=== PATIENT | male | born 1955 | race African-American/Black ===

== ENCOUNTER 2023-05-09 12:07 | Inpatient (IN) | payer OTHER ==
[2023-05-09] VITALS (16 sets, daily range): BP systolic 78–118; BP diastolic 44–94; TEMP 98.2–98.7; O2SAT 95–100
[~2023-05-09] VITALS: Ht 188 cm; Wt 92.5 kg
[2023-05-09] MEDS: IV NS 0.9% 1,000 ML BAG IV ONE (12:45)
[2023-05-09 12:52] LABS: BASOPHILS % (AUTO) 0.4 % (0.0-2.0); HEMATOCRIT 38 % (39-51); HEMOGLOBIN 12.6 g/dL (13.5-17.5); LYMPHOCYTES # (AUTO) 0.5 K/uL (0.8-4.8); LYMPHOCYTES % (AUTO) 5.7 % (20.0-44.0); MEAN CORPUSCULAR HEMOGLOBIN 32 PG (26.0-33.0); MEAN CORPUSCULAR HGB CONC 33 g/dl (31.0-36.0); MEAN CORPUSCULAR VOLUME 98 fL (80-96); MONOCYTES # (AUTO) 0.7 K/uL (0.1-1.30); NEUTROPHILS # (AUTO) 8.2 K/uL (1.8-8.9); NEUTROPHILS % (AUTO) 86.9 % (43.0-81.0); PLATELET COUNT (AUTO) 232 K/uL (150-450); RED BLOOD CELL COUNT(AUTO) 3.92 MIL/uL (4.5-6.0); WHITE BLOOD COUNT (AUTO) 9.4 K/uL (4.3-11.0)
[2023-05-09 12:58] LABS: SERUM AMMONIA 20 umol/L (11-32)
[2023-05-09] MEDS ORDERED: BACL10TA PO (13:01)
[2023-05-09] MEDS ORDERED: GABA-532 PO (13:01)
[2023-05-09 13:06] LABS: INR 1.02 (0.91-1.10); PARTIAL THROMBOPLASTIN TIME 23.8 SEC (24.3-34.3); PROTHROMBIN TIME 10.8 SECS (9.2-11.1)
[2023-05-09 13:26] LABS: LACTIC ACID 2.5 mmol/L (0.4-2.0)
[2023-05-09 13:30] LABS: THYROID STIMULATING HORMONE 1.677 uIU/mL (0.358-3.74)
[2023-05-09 13:46] LABS: APPEARANCE,URINE Clear (CLEAR); BILIRUBIN,URINE SMALL (NEGATIVE); BLOOD, URINE Negative Ery/uL (NEGATIVE); COLOR,URINE YELLOW (YELLOW); KETONES,URINE Trace mg/dL (NEGATIVE); LEUKOCYTE ESTERASE ,URINE Negative (NEGATIVE); NITRITE, URINE Negative (NEGATIVE); PROTEIN,URINE Negative (NEGATIVE); UGLUCOSE Negative (NEGATIVE); UROBILINOGEN,URINE 0.2 EU/dL (0.2)
[2023-05-09 13:48] LABS: ADD URINE CULTURE NO; BACTERIA,URINE None seen /HPF (None Seen); RBC,URINE NONE SEEN /HPF (0-2); SQUAMOUS EPITHELIAL CELL,UR None Seen /HPF (None Seen); WBC,URINE NONE SEEN /HPF (0-3)
[2023-05-09 13:51] LABS: AMPHETAMINE, URINE NEGATIVE (NEGATIVE); BARBITURATE, URINE NEGATIVE (NEGATIVE); BENZODIAZEPINE, URINE NEGATIVE (NEGATIVE); CANNABINOID, URINE NEGATIVE (NEGATIVE); COCCAINE, URINE NEGATIVE (NEGATIVE); OPIATE, URINE NEGATIVE (NEGATIVE); PHENCYCLIDINE SCREEN,URINE NEGATIVE (NEGATIVE)
[2023-05-09 14:36] LABS: CALCIUM, SERUM 10.1 mg/dL (8.5-10.1); CARBON DIOXIDE 17 mmol/L (21-32); CHLORIDE 96 mmol/L (98-107); GLUCOSE 111 mg/dL (74-106); POTASSIUM 6.1 mmol/L (3.5-5.1); SODIUM SERUM 130 mmol/L (136-145)
[2023-05-09 14:37] LABS: UREA NITROGEN, BLOOD 204 mg/dL (7-18)
[2023-05-09 14:41] LABS: ALANINE AMINOTRANSFERASE 16 U/L (12-78); ALBUMIN 3.2 g/dL (3.4-5.0); ALCOHOL, BLOOD < 3 mg/dL (0-10); ALKALINE PHOSPHATASE 62 U/L (46-116); ASPARTATE AMINOTRANSFERASE 14 U/L (15-37); BILIRUBIN,DIRECT 0.2 mg/dL (0.0-0.2); BILIRUBIN,TOTAL 0.4 mg/dL (0.2-1.0); TOTAL PROTEIN, SERUM 8.6 g/dL (6.4-8.2)
[2023-05-09 14:42] LABS: ACETAMINOPHEN <10 ug/ml (10-30); CREATININE 12.9 mg/dL (0.6-1.3)
[2023-05-09] MEDS ORDERED: FUROSEMIDE 20 MG/2 ML VIAL ONE (15:49)
[2023-05-09] MEDS ORDERED: SODIUM POLYSTYRENE SULFONATE 15 G/60 ML BOTTLE ONE (15:49)
[2023-05-09] MEDS ORDERED: INSULIN REGULAR, HUMAN 100 UNIT/ML 10 ML VIAL ONE (15:49)
[2023-05-09] MEDS ORDERED: DEXTROSE 50%-WATER 50 ML DISP.SYRIN ONE (15:49)
[2023-05-09] MEDS ORDERED: SODIUM BICARBONATE SYR 50 MEQ/50 ML DISP.SYRIN ONE (15:49)
[2023-05-09] MEDS: DEXTROSE 50%-WATER 50 ML DISP.SYRIN IV ONE ×2 (16:04)
[2023-05-09] MEDS: SODIUM BICARBONATE SYR 50 MEQ/50 ML DISP.SYRIN IV ONE (16:04)
[2023-05-09] MEDS: SODIUM POLYSTYRENE SULFONATE 15 G/60 ML BOTTLE PO ONE (16:04)
[2023-05-09] MEDS: FUROSEMIDE 40 MG/4 ML VIAL IV ONE (16:04)
[2023-05-09] MEDS: INSULIN REGULAR, HUMAN 100 UNIT/ML 10 ML VIAL IV ONE (16:05)
[2023-05-09] MEDS: ALBUTEROL FS 2.5 MG/3 ML VIAL.NEB NEB ONE (16:06)
[2023-05-09] MEDS ORDERED: ALBUTEROL FS 2.5 MG/3 ML VIAL.NEB ONE (16:06)
[2023-05-09] MEDS ORDERED: MAG HYDROX/AL HYDROX/SIMETH 30 ML UDC PO PRN (16:30)
[2023-05-09] MEDS ORDERED: ONDANSETRON HCL/PF 4 MG/2 ML VIAL IVP PRN (16:30)
[2023-05-09] MEDS: IV NS 0.9% 1,000 ML IV SCH (17:54)
[2023-05-09] MEDS ORDERED: ADENOSINE 6 MG/2 ML VIAL IVP ONE (19:30)
[2023-05-09] MEDS: IV NS 0.9% 1,000 ML IV ONE (20:41)
[2023-05-09] MEDS: SODIUM POLYSTYRENE SULF. PWD 15 GM UDC PO ONE (20:54)
[2023-05-10] VITALS (40 sets, daily range): BP systolic 52–130; BP diastolic 41–98; TEMP 97.2–98.9; O2SAT 96–100
[2023-05-10] MEDS: ALBUMIN 25% 50 GM in PREMIX 1 EA IV PRN (02:30)
[2023-05-10] MEDS: ALBUMIN 25% 200 ML IV ONE (02:37)
[2023-05-10] MEDS: NOREPINEPHRINE 32 MG in IV NS 0.9% 218 ML IV PRN (02:46)
[2023-05-10 04:46] LABS: BASOPHILS % (AUTO) 0.1 % (0.0-2.0); EOSINOPHILS % (AUTO) 0.1 % (0.0-6.0); HEMATOCRIT 33 % (39-51); HEMOGLOBIN 10.9 g/dL (13.5-17.5); LYMPHOCYTES # (AUTO) 0.4 K/uL (0.8-4.8); LYMPHOCYTES % (AUTO) 2.8 % (20.0-44.0); MEAN CORPUSCULAR HEMOGLOBIN 32 PG (26.0-33.0); MEAN CORPUSCULAR HGB CONC 33 g/dl (31.0-36.0); MEAN CORPUSCULAR VOLUME 96 fL (80-96); MONOCYTES # (AUTO) 1.2 K/uL (0.1-1.30); MONOCYTES % (AUTO) 9.2 % (2.0-12.0); NEUTROPHILS # (AUTO) 11.2 K/uL (1.8-8.9); NEUTROPHILS % (AUTO) 87.8 % (43.0-81.0); PLATELET COUNT (AUTO) 174 K/uL (150-450); RED BLOOD CELL COUNT(AUTO) 3.41 MIL/uL (4.5-6.0); RED CELL DISTRIBUTION WIDTH 14.2 % (11.5-15.0); WHITE BLOOD COUNT (AUTO) 12.7 K/uL (4.3-11.0)
[2023-05-10 05:03] LABS: CALCIUM, SERUM 9.8 mg/dL (8.5-10.1); CREATININE 5.5 mg/dL (0.6-1.3); MAGNESIUM 2.4 mg/dL (1.8-2.4); PHOSPHORUS 4.3 mg/dL (2.5-4.9); POTASSIUM 3.7 mmol/L (3.5-5.1)
[2023-05-10] MEDS ORDERED: NOREPINEPHRINE 8 MG in IV D5W 250ML IV PRN (09:00)
[2023-05-10] MEDS: CLOTRIMAZOLE 1% 15 GM TUBE TP SCH (09:28)
[2023-05-10] MEDS: IV NS 0.9% 1,000 ML IV PRN (12:29)
[2023-05-10 13:15] LABS: CREATININE, URINE 196.6 MG/DL (30.0-125.0); URINE TOTAL PROTEIN 68.8 mg/dL (0-11.9)
[2023-05-10 13:18] LABS: APPEARANCE,URINE CLEAR (CLEAR); BILIRUBIN,URINE NEGATIVE (NEGATIVE); BLOOD, URINE 2+ Ery/uL (NEGATIVE); COLOR,URINE YELLOW (YELLOW); KETONES,URINE NEGATIVE (NEGATIVE); LEUKOCYTE ESTERASE ,URINE TRACE (NEGATIVE); NITRITE, URINE NEGATIVE (NEGATIVE); PH,URINE 5.5 (5.0-8.0); PROTEIN,URINE NEGATIVE (NEGATIVE); UGLUCOSE NEGATIVE (NEGATIVE); UROBILINOGEN,URINE 0.2 EU/dL (0.2)
[2023-05-10 13:22] LABS: ADD URINE CULTURE YES; BACTERIA,URINE Rare /HPF (None Seen); EOSINOPHIL,URINE None Seen; SQUAMOUS EPITHELIAL CELL,UR Few /HPF (None Seen)
[2023-05-10] MEDS: TAMSULOSIN 0.4 MG CAP.SR.24H PO SCH (22:03)
[2023-05-11] VITALS: BP 105/64; TEMP 97.8; O2SAT 98
[2023-05-11 04:00] VITALS: BP 112/71; TEMP 97.3; O2SAT 98
[2023-05-11 07:00] LABS: BASOPHILS % (AUTO) 0.1 % (0.0-2.0); EOSINOPHILS # (AUTO) 0.1 K/uL (0.0-0.7); EOSINOPHILS % (AUTO) 0.7 % (0.0-6.0); HEMATOCRIT 31 % (39-51); HEMOGLOBIN 10.5 g/dL (13.5-17.5); LYMPHOCYTES # (AUTO) 0.7 K/uL (0.8-4.8); LYMPHOCYTES % (AUTO) 8.4 % (20.0-44.0); MEAN CORPUSCULAR HEMOGLOBIN 33 PG (26.0-33.0); MEAN CORPUSCULAR HGB CONC 34 g/dl (31.0-36.0); MEAN CORPUSCULAR VOLUME 97 fL (80-96); MONOCYTES % (AUTO) 11.9 % (2.0-12.0); NEUTROPHILS # (AUTO) 6.4 K/uL (1.8-8.9); NEUTROPHILS % (AUTO) 78.9 % (43.0-81.0); PLATELET COUNT (AUTO) 149 K/uL (150-450); RED BLOOD CELL COUNT(AUTO) 3.18 MIL/uL (4.5-6.0); RED CELL DISTRIBUTION WIDTH 14.2 % (11.5-15.0); WHITE BLOOD COUNT (AUTO) 8.2 K/uL (4.3-11.0)
[2023-05-11 07:15] LABS: ALBUMIN 3.1 g/dL (3.4-5.0); BILIRUBIN,TOTAL 0.9 mg/dL (0.2-1.0); CALCIUM, SERUM 9.5 mg/dL (8.5-10.1); CREATININE 2.9 mg/dL (0.6-1.3); MAGNESIUM 2.3 mg/dL (1.8-2.4); POTASSIUM 3.2 mmol/L (3.5-5.1); TOTAL PROTEIN, SERUM 7.5 g/dL (6.4-8.2)
[2023-05-11 08:00] VITALS: BP 109/76; TEMP 99; O2SAT 98
[2023-05-11] MEDS: NOREPINEPHRINE 4 MG/4 ML AMPUL IV ONE (08:00)
[2023-05-11 08:06] LABS: HEPATITIS Be AG Negative (Negative)
[2023-05-11] MEDS: POTASSIUM CHLORIDE 20 MEQ TAB.PRT.SR PO ONE (08:52)
[2023-05-11] MEDS: PROSOURCE / PROSTAT (PYXIS) 30 ML UDC PO SCH (08:53)
[2023-05-11] MEDS ORDERED: NEPRO VAN 237 ML CAN PO PRN (09:00)
[2023-05-11] MEDS: Potassium Chloride 10 MEQ in IV D5/ 0.9% NACL 1,000 ML IV SCH (10:03)
[2023-05-11 12:00] VITALS: BP 116/75; TEMP 97; O2SAT 98
[2023-05-11 12:09] LABS: HEPATITIS B CORE AB, IgM Negative (Negative); HEPATITIS B CORE AB, TOTAL Negative (Negative); HEPATITIS B SURFACE AB Non Reactive (.)
[2023-05-11 16:00] VITALS: BP 126/79; TEMP 96.5; O2SAT 98
[2023-05-11 20:00] VITALS: BP 124/74; TEMP 98.6; O2SAT 98
[2023-05-12] VITALS: BP 112/76; TEMP 98.9; O2SAT 98
[2023-05-12 04:00] VITALS: BP 120/70; TEMP 98.9; O2SAT 98
[2023-05-12 06:25] LABS: BASOPHILS % (AUTO) 0.1 % (0.0-2.0); EOSINOPHILS # (AUTO) 0.1 K/uL (0.0-0.7); EOSINOPHILS % (AUTO) 1.4 % (0.0-6.0); HEMATOCRIT 31 % (39-51); HEMOGLOBIN 10.5 g/dL (13.5-17.5); LYMPHOCYTES # (AUTO) 0.7 K/uL (0.8-4.8); LYMPHOCYTES % (AUTO) 10.4 % (20.0-44.0); MEAN CORPUSCULAR HEMOGLOBIN 33 PG (26.0-33.0); MEAN CORPUSCULAR HGB CONC 33 g/dl (31.0-36.0); MEAN CORPUSCULAR VOLUME 98 fL (80-96); MONOCYTES # (AUTO) 0.9 K/uL (0.1-1.30); MONOCYTES % (AUTO) 14.2 % (2.0-12.0); NEUTROPHILS # (AUTO) 4.9 K/uL (1.8-8.9); NEUTROPHILS % (AUTO) 73.9 % (43.0-81.0); PLATELET COUNT (AUTO) 142 K/uL (150-450); RED CELL DISTRIBUTION WIDTH 14.2 % (11.5-15.0); WHITE BLOOD COUNT (AUTO) 6.6 K/uL (4.3-11.0)
[2023-05-12 06:31] LABS: CALCIUM, SERUM 9.4 mg/dL (8.5-10.1); CREATININE 1.6 mg/dL (0.6-1.3); POTASSIUM 3.3 mmol/L (3.5-5.1)
[2023-05-12 08:00] VITALS: BP 100/70; TEMP 97.3; O2SAT 98
[2023-05-12 08:12] LABS: PTH, INTACT 74 pg/mL (15-65)
[2023-05-12] MEDS: Z GUARD REMEDY 4 OZ OINT TP PRN (11:52)
[2023-05-12 12:00] VITALS: BP 115/86; TEMP 97.1; O2SAT 100
[2023-05-12 12:07] LABS: HEPATITIS Be AB Negative (Negative)
[2023-05-12 13:09] LABS: *SPE A/G RATIO 0.9 (0.7-1.7); *SPE ALBUMIN 3.1 g/dL (2.9-4.4); *SPE ALPHA-1-GLOBULIN 0.3 g/dL (0.0-0.4); *SPE ALPHA-2-GLOBULIN 1.3 g/dL (0.4-1.0); *SPE BETA GLOBULIN 0.7 g/dL (0.7-1.3); *SPE GLOBULIN, TOTAL 3.6 g/dL (2.2-3.9); *SPE M-SPIKE 0.2 g/dL (Not Observed); *SPE PROTEIN TOTAL 6.7 g/dL (6.0-8.5); *SPEGAMMA GLOBULIN 1.2 g/dL (0.4-1.8)
[2023-05-12] MEDS ORDERED: POTASSIUM CHLORIDE 10 MEQ/50 ML PREMIXED IVPB FOR PERIPHERAL LINE IV ONE (15:00)
[2023-05-12 16:00] VITALS: BP 118/83; TEMP 97.2; O2SAT 100
[2023-05-12] MEDS: POTASSIUM CL. PREMIX PERIPHER. 50 ML IV SCH (18:36)
[2023-05-12 20:00] VITALS: BP 112/71; TEMP 98.2; O2SAT 100
[2023-05-13] VITALS: BP 116/75; TEMP 98.4; O2SAT 100
[2023-05-13 04:00] VITALS: BP 115/59; TEMP 97.8; O2SAT 98
[2023-05-13] MEDS ORDERED: Tamsulosin PO (07:06)
[2023-05-13] MEDS ORDERED: CLOT15CR35 TP (07:06)
[2023-05-13 08:00] VITALS: BP 115/80; TEMP 97.5; O2SAT 100
[2023-05-13 12:00] VITALS: BP 113/83; TEMP 97.5; O2SAT 97
[2023-05-13 16:00] VITALS: BP 142/86; TEMP 97.9; O2SAT 100
[2023-05-13 20:00] VITALS: BP 128/82; TEMP 98.7; O2SAT 99
[2023-05-14 04:00] VITALS: BP 118/81; TEMP 98.2; O2SAT 100
[2023-05-14 08:00] VITALS: BP 128/85; TEMP 98; O2SAT 99
[2023-05-14 11:42] LABS: BASOPHILS % (AUTO) 0.3 % (0.0-2.0); EOSINOPHILS # (AUTO) 0.2 K/uL (0.0-0.7); EOSINOPHILS % (AUTO) 2.8 % (0.0-6.0); HEMATOCRIT 31 % (39-51); HEMOGLOBIN 10.2 g/dL (13.5-17.5); LYMPHOCYTES # (AUTO) 0.8 K/uL (0.8-4.8); LYMPHOCYTES % (AUTO) 12.5 % (20.0-44.0); MEAN CORPUSCULAR HEMOGLOBIN 33 PG (26.0-33.0); MEAN CORPUSCULAR HGB CONC 33 g/dl (31.0-36.0); MEAN CORPUSCULAR VOLUME 99 fL (80-96); MONOCYTES # (AUTO) 0.8 K/uL (0.1-1.30); MONOCYTES % (AUTO) 12.5 % (2.0-12.0); NEUTROPHILS # (AUTO) 4.5 K/uL (1.8-8.9); NEUTROPHILS % (AUTO) 71.9 % (43.0-81.0); PLATELET COUNT (AUTO) 141 K/uL (150-450); RED BLOOD CELL COUNT(AUTO) 3.12 MIL/uL (4.5-6.0); RED CELL DISTRIBUTION WIDTH 14.1 % (11.5-15.0); WHITE BLOOD COUNT (AUTO) 6.3 K/uL (4.3-11.0)
[2023-05-14 12:03] LABS: ALBUMIN 2.3 g/dL (3.4-5.0); BILIRUBIN,TOTAL 0.6 mg/dL (0.2-1.0); CALCIUM, SERUM 8.6 mg/dL (8.5-10.1); CREATININE 1.2 mg/dL (0.6-1.3); MAGNESIUM 1.3 mg/dL (1.8-2.4); PHOSPHORUS 1.5 mg/dL (2.5-4.9); POTASSIUM 3.5 mmol/L (3.5-5.1); TOTAL PROTEIN, SERUM 6.3 g/dL (6.4-8.2)
[2023-05-14 16:00] VITALS: BP 129/71; TEMP 97; O2SAT 100
[2023-05-14] MEDS: K PHOS NEUTRAL 250 MG TABLET PO ONE (16:34)
[2023-05-14 20:00] VITALS: BP 132/79; TEMP 98.4; O2SAT 99
[2023-05-15 04:00] VITALS: BP 123/92; TEMP 98.1; O2SAT 98
[2023-05-15] MEDS: VIT B CMPLX 3/FA/VIT C/BIOTIN 1 TAB TABLET PO SCH (08:23)
[2023-05-15] MEDS: ZINC SULFATE 220 MG CAPSULE PO SCH (08:23)
[2023-05-15 08:59] VITALS: BP 129/71; TEMP 97; O2SAT 100
[2023-05-15] MEDS: ACETAMINOPHEN 325 MG TABLET PO PRN (14:16)
[2023-05-15 16:41] VITALS: BP 129/71; TEMP 97; O2SAT 100
[2023-05-15] MEDS: MAGNESIUM HYDROXIDE 30 ML UDC PO PRN (19:23)
[2023-05-15 20:00] VITALS: BP 137/86; TEMP 97.9; O2SAT 100
[2023-05-16 04:00] VITALS: BP 130/81; TEMP 97.7; O2SAT 100
[2023-05-16 08:49] LABS: BASOPHILS # (AUTO) 0.1 K/uL (0.0-0.2); BASOPHILS % (AUTO) 0.6 % (0.0-2.0); EOSINOPHILS # (AUTO) 0.1 K/uL (0.0-0.7); EOSINOPHILS % (AUTO) 0.8 % (0.0-6.0); HEMATOCRIT 33 % (39-51); HEMOGLOBIN 10.8 g/dL (13.5-17.5); LYMPHOCYTES # (AUTO) 0.8 K/uL (0.8-4.8); LYMPHOCYTES % (AUTO) 8.5 % (20.0-44.0); MEAN CORPUSCULAR HEMOGLOBIN 33 PG (26.0-33.0); MEAN CORPUSCULAR HGB CONC 33 g/dl (31.0-36.0); MEAN CORPUSCULAR VOLUME 99 fL (80-96); MONOCYTES # (AUTO) 0.8 K/uL (0.1-1.30); MONOCYTES % (AUTO) 8.9 % (2.0-12.0); NEUTROPHILS # (AUTO) 7.3 K/uL (1.8-8.9); NEUTROPHILS % (AUTO) 81.2 % (43.0-81.0); PLATELET COUNT (AUTO) 142 K/uL (150-450); RED CELL DISTRIBUTION WIDTH 14.2 % (11.5-15.0)
[2023-05-16 10:30] VITALS: BP 129/71; TEMP 97; O2SAT 100
[2023-05-16 12:10] LABS: ALBUMIN 2.3 g/dL (3.4-5.0); BILIRUBIN,TOTAL 0.6 mg/dL (0.2-1.0); CALCIUM, SERUM 8.1 mg/dL (8.5-10.1); MAGNESIUM 1.3 mg/dL (1.8-2.4); PHOSPHORUS 2.2 mg/dL (2.5-4.9); POTASSIUM 3.5 mmol/L (3.5-5.1); TOTAL PROTEIN, SERUM 6.6 g/dL (6.4-8.2)
[2023-05-16] MEDS: NEUTRA PHOS 1 POWD.PACKET PO ONE (15:56)
[2023-05-16 16:47] VITALS: BP 131/71; TEMP 97; O2SAT 100
[2023-05-16 20:00] VITALS: BP 134/76; TEMP 98.9; O2SAT 100
[2023-05-17 04:00] VITALS: BP_SYST 107; BP_SYST 114; BP_DIAS 66; BP_DIAS 85; TEMP 98.4; TEMP 99; O2SAT 97; O2SAT 98
[2023-05-17] MEDS: K PHOS NEUTRAL 250 MG TABLET PO ONE (16:29)
== END 2023-05-17 19:08 | DRG 682 ==
LOC: ER 12:12 → ICU 16:40 → TELE1 05-10 15:17 → MEDSG1 05-13 12:22
PROVIDERS: ADMIT Internal Medicine; ATTEND Internal Medicine
PROC: 05HB33Z Insertion of Infusion Device into Right Basilic Vein, Percutaneous Approach (ICD-10-PCS; 2023-05-09)
PROC: B54MZZA Ultrasonography of Right Upper Extremity Veins, Guidance (ICD-10-PCS; 2023-05-09)
PROC: 5A1D70Z Performance of Urinary Filtration, Intermittent, Less than 6 Hours Per Day (ICD-10-PCS; principal; 2023-05-10)
PROC: 05HM33Z Insertion of Infusion Device into Right Internal Jugular Vein, Percutaneous Approach (ICD-10-PCS; 2023-05-10)
PROC: B543ZZA Ultrasonography of Right Jugular Veins, Guidance (ICD-10-PCS; 2023-05-10)
PROC: 02HV33Z Insertion of Infusion Device into Superior Vena Cava, Percutaneous Approach (ICD-10-PCS; 2023-05-15)
PROC: B548ZZA Ultrasonography of Superior Vena Cava, Guidance (ICD-10-PCS; 2023-05-15)
DX: N17.9 Acute kidney failure, unspecified (principal); G93.41 Metabolic encephalopathy; E87.1 Hypo-osmolality and hyponatremia; E86.0 Dehydration; E87.5 Hyperkalemia; Z20.822 Contact with and (suspected) exposure to COVID-19; E87.70 Fluid overload, unspecified; F03.90 Unspecified dementia, unspecified severity, without behavioral disturbance, psychotic disturbance, mood disturbance, and anxiety
CPT/HCPCS: 36410; 36415; 70450-TC; 71045-TC; 76770-TC; 80048-TC; 80053-TC; 80076-TC; 81001; 82140-TC; 82550-TC; 82570-TC; 82962-TC; 83605-TC; 83735-TC; 83970; 84100-TC; 84155; 84165; 84300-TC; 84443-TC; 84484-TC; 85025-TC; 85730-TC; 86704; 86705; 86706; 86707; 86803; 87040-TC; 87086-TC; 87340; 87350; 90935-TC; 94799-TC; 97110-TC; 97116-TC; 97530-TC; A4216; A4223; G0378; G0480; J1815; J1940; J3480; J3490; J7030; J7042; J7050; J7060; P9047